=== PATIENT | female | born 1940 | race Caucasian/White ===

== ENCOUNTER 2016-04-09 10:54 | Emergency (ER) | payer MEDICARE, OTHER ==
[~2016-04-09] VITALS: Ht 162.6 cm; Wt 95.5 kg
[~2016-04-09 10:54] MED LIST: ALBU8.5H2 INHALATION; ATOR20TA PO; CELE100C PO; CHOL100045 PO; CYAN1TAB42 PO; DULO60CA42 PO; FLUT12AE8 IH; HYDR25TA4 PO; LOSA50TA37 PO; METF500T4 PO; METO25TA6 PO; PANT40TA2 PO; RANI300C PO; TRAM50TA2 PO
[2016-04-09 11:04] VITALS: BP 150/77; PULSE 116; RESP 18; O2SAT 98
--- NOTE | 2016-04-09 11:30 | ED.REPORT ---
HPI-General Illness Date of Service Apr 09, 2016 ED Provider: Sera Blakely History of Present Illness: 75-year-old female with a history of MS here for multiple complaints. She has been symptomatic for 1 week worsening 2 days ago. 2 days ago she had a new experimental MS drug, she does not know if this is playing a role in her symptoms. Symptoms include shortness of breath with talking or with walking, she has a decreased exercise intolerance even with just a few steps. She is having bladder malfunctions. This is not necessarily different for her but it is worse than usual. Differences in amount of stream and force of stream. She wonders if she has UTI. She has been fatigued all week increasing in the last 2 days. She feels some substernal chest pain 1 week. She has some baseline sinus issues that have not worsened. She has a minor cough. He feels like her heart rate has been increased from its baseline. She has had a headache as well. She is a history of acid reflux and this is also worse, feeling like her epigastric area is being squeezed. SHe is also having back pain, mid back. Pt has a hx of asthma, T2DM, acid reflux, HTN, Nursing Notes Stated Complaint: TROUBLE BREATHING/HEADACHE/WEAK Chief Complaint: General Complaint Nursing Notes Reviewed: Yes Allergies: Coded Allergies: Sulfa (Sulfonamide Antibiotics) (Verified Allergy, Unknown, 05/28/15) dimethyl fumarate (Verified Allergy, Unknown, 05/28/15) interferon beta-1a (Verified Allergy, Unknown, 05/28/15) glatiramer (copolymer 1) (Verified Adverse Reaction, Severe, Anaphylaxis, 05/28/15) Scheduled Albuterol HFA (Proair HFA) 8.5 Gm Hfa.aer.ad 2 PUFFS INHALATION Q4H Atorvastatin (Lipitor) 20 Mg Tablet 20 MG PO DAILY Celecoxib (Celebrex) 100 Mg Capsule 100 MG PO DAILY Cholecalciferol (Vitamin D3) (Vitamin D) 1,000 Unit Capsule 1,000 UNIT PO DAILY Cyanocobalamin/Folic Acid (Vitamin P59-Enrvo Acid Tablet) 1 Each Tablet 1 EACH PO DAILY Duloxetine (Cymbalta) 60 Mg Capsule.dr 60 MG PO DAILY Fluticasone Propionate (Flovent HFA 110 mcg) 12 Gm Aer.w.adap 1 PUFF IH BID Hydrochlorothiazide (Hydrochlorothiazide) 25 Mg Tablet 25 MG PO DAILY Losartan Potassium (Losartan Potassium) 50 Mg Tablet 50 MG PO DAILY Metformin (Metformin) 500 Mg Tablet 500 MG PO DAILY Metoprolol Tartrate (Metoprolol Tartrate) 25 Mg Tablet 25 MG PO BID Pantoprazole DR (Protonix) 40 Mg Tablet.dr 40 MG PO DAILY Ranitidine (Ranitidine) 300 Mg Capsule 300 MG PO DAILY Scheduled PRN Tramadol (Tramadol) 50 Mg Tablet 50 MG PO HS PRN PRN For Pain General Time Seen by MD: 11:17 Chief Complaint Headache, Heartburn, Multip medical complaints, Urinary frequency, Weakness Hx Obtained From: Patient Arrived By: Walk-in Sudden in Onset?: No Onset Occurred: 1 week ago Symptom Duration: Waxes and wanes Similar Sx Previous: Yes Past Medical History Past Medical History Notes: ED visit for multiple complaints 04/25/15 multiple sclerosis Past Medical History Multiple Sclerosis Asthma GERD Hiatal hernia Kidney stones Hx of UTI Basal cell carcinoma Fibromyalgia Anxiety Depression Past Surgical History Hysterectomy x2 Shoulder surgery x2 Family History noncontributory Smoking History Never Smoker Social History Alcohol Use: "Social" Drug Use: Denies drug use Other Social History: Good social support, , Local resident Ambulatory Status Independent Review of Systems Full Review of Systems Constitutional: Denies: Fever Ears / Nose / Throat: Reports: Nasal congestion Respiratory: Reports: Dyspnea on exertion, Shortness of breath Cardiovascular: Reports: Chest pain, Denies: Edema, Syncope Female: Reports: Urinary frequency, Urinary urgency Musculoskeletal: Reports: Back pain Neurologic: Reports: Bladder dysfunction, Dizziness, Headache, Denies: Lightheaded, Problem walking Complete sys rev & neg: except as marked. Physical Exam Vital Signs Vital Signs Date Time Temp Pulse Resp B/P Pulse Ox O2 Delivery O2 Flow Rate FiO2 04/09/16 14:28 89 16 144/74 95 Room Air 04/09/16 12:35 91 16 93 Room Air 04/09/16 11:04 37.3 116 18 150/77 98 Room Air Initial VS: Reviewed General/Constitutional: Well-developed, Well-nourished Head / Eyes: Atraumatic, Normocephalic, PERRL ENT: Mucous membranes moist, Conjunctiva normal Neck: Supple, Non-tender, Full range of motion Respiratory: No respiratory distress Cardiovascular: Heart sounds normal, Intact distal pulses Abdomen / GI: Soft, No guarding, No rebound, No distention Back: No CVA tenderness Lymphatic: No lymphadenopathy Extremities: Vascular intact Skin: Warm, Dry, No cyanosis Neurologic: Alert, Oriented, Nonfocal Psychiatric: Mood/affect normal, Behavior normal, Normal thought content Wheezing / Retractions: Positive: Wheezing mild wheeze R base, mild Abdomen: BS normoactive, No distention, No hernia, No palpable mass, No pulsatile mass Tenderness/Guarding/Rebound: Positive: Tender LUQ... (Moderate), Tender RUQ... (Moderate), Tender epigastric Back: Atraumatic, Inspection NL Tender upper back, intrascapular area, no midline tenderness down length of spine mild, 1+ LE pitting edema, bilat Interpretation & Diagnostics Lab Results Interpretation Result Diagram: 04/09/16 1215 04/09/16 1215 Test 04/09/16 12:15 04/09/16 13:00 White Blood Count 7.5th/mm3 (3.8-10.1) Red Blood Count 4.68mil/mm3 (3.90-5.20) Hemoglobin 13.9g/dL (12.0-15.6) Hematocrit 41.9% (35.0-46.0) Mean Corpuscular Volume 89.5fL (81-100) Mean Corpuscular Hemoglobin 29.7pg (27.0-35.0) Mean Corpuscular Hemoglobin Concent 33.2% (32.0-37.0) Red Cell Distribution Width 14.9% (12.3-15.4) Platelet Count 291bil/L (150-400) Neutrophils (%) (Auto) 66.0% (40-74) Lymphocytes (%) (Auto) 19.9% (14-46) Monocytes (%) (Auto) 9.5% (4-12) Eosinophils (%) (Auto) 2.8% (0-5) Basophils (%) (Auto) 1.1% (0-3) Sodium Level 135mEq/L (134-144) Potassium Level 4.2mEq/L (3.5-5.2) Chloride Level 95mEq/L (97-108) Carbon Dioxide Level 21mmol/L (18-29) Blood Urea Nitrogen 25mg/dL (8-27) Creatinine 1.13mg/dL (0.57-1.00) Estimat Glomerular Filtration Rate 68mL/min (>59) Glucose Level 171mg/dL (60-99) Calcium Level 9.6mg/dL (8.5-10.1) Magnesium Level 1.5mg/dL (1.6-2.6) Total Bilirubin 0.6mg/dL (0.0-1.2) Aspartate Amino Transf (AST/SGOT) 35U/L (0-50) Alanine Aminotransferase (ALT/SGPT) 34U/L (0-32) Alkaline Phosphatase 63U/L (25-165) Troponin T 0.010ug/L (0.0-0.011) Total Protein 7.7g/dL (6.4-8.4) Albumin 4.5g/dL (3.4-5.0) Amylase Level 44U/L (28-100) Lipase 36U/L (13-60) D-Dimer < 0.5mg/L (<0.50) ECG Interpretation Interpreted by: ED physician Abnormal Rate: 100 Rhythm / Conduction: Tachycardia Re-Eval/Medical Decision Med Decision/Clinical Course Discussed discharge with patient. She does not want to do a round of steroids right now for her abdominal symptoms. She will follow up with her PCP in the next 1-2 days or return to the ER if worsening in the next 24-48 hours. Unknown if her symptoms are related to her medication but she should not take her new med until follow-up with her MS specialist. She has follow-up in April with GI already scheduled she will try to see if she get in sooner. Discharge & Departure Shift Change Sign-Out Laboratory Evaluation: Lab evaluation discussed Imaging Studies: Imaging discussed Procedures: Results discussed Response to Therapy: Improved Primary Impression: History of multiple sclerosis Additional Impressions: Shortness of breath Acid reflux disease Esophagitis presence: with esophagitis Qualified Code: K21.0 - Gastro- esophageal reflux disease with esophagitis Disposition: Home Discharge Condition All VS Reviewed: Yes Condition: Stable Patient Instructions: Gastroesophageal Reflux Disease (ED) Additional Instructions: Monitor abdominal pain and return to the emergency room if pain worsens, you get fever, vomiting, worsening chest pain, shortness of breath or anything major changes. Otherwise follow-up with your PCP in one to 2 days. Try to get it appointment with GI sooner than mid April. He were not found to have any new infections or conditions today things change need to get reevaluated. Do not take your new medication until instructed to by your MS specialist Referrals: Amado Tenorio DO (PCP) EDSupervising Provider for APC: Nino Mcdermott MD copies to: Amado Tenorio Linnea K ARNP Apr 09, 2016 11:30
[2016-04-09] MEDS ORDERED: Albuterol-Ipratropium 3 mL Inhalation Solution NEB ONE (11:40)
[2016-04-09 12:28] LABS: BASOPHILS % (AUTO) 1.1 % (0-3); EOSINOPHILS % (AUTO) 2.8 % (0-5); MONOCYTES % (AUTO) 9.5 % (4-12); Mean Corpuscular Hemoglobin 29.7 pg (27.0-35.0); Mean Corpuscular Volume 89.5 fL (81-100); Platelet Count 291 bil/L (150-400)
[2016-04-09 12:35] VITALS: PULSE 91; RESP 16; O2SAT 93
[2016-04-09 12:53] LABS: TROPONIN T 0.01 ug/L (0.0-0.011)
[2016-04-09 13:04] LABS: Magnesium 1.5 mg/dL (1.6-2.6)
[2016-04-09] MEDS ORDERED: MetoCLOpramide 5 mg/mL 2 mL Inj IVPUSH ONE (13:25)
[2016-04-09 14:28] VITALS: BP 144/74; PULSE 89; RESP 16; O2SAT 95
--- NOTE | 2016-04-09 15:15 | DRSVH ---
PROCEDURE: X-RAY CHEST ONE VIEW, PORTABLE ([id number]) INDICATIONS: SHORTNESS OF BREATH TECHNIQUE: One view of the chest was acquired. COMPARISON: [facility], CR, XR CHEST 2VW, 01/25/2016, 10:53. [facility], C R, XR CHEST 1VW (PORTABLE), 04/25/2015, 11:21. FINDINGS: Surgical changes and devices: None. Lungs and pleura: No pleural effusions or pneumothorax. Lungs are clear. Chronic right hemidiaphra gm elevation appears unchanged. Mediastinum: Mediastinal contours appear normal. Heart size is normal. Bones and chest wall: No suspicious bony lesions. Overlying soft tissues appear unremarkable. IMPRESSION: No acute cardiopulmonary disease. Chronic right hemidiaphragm elevation. Dictated by: Gordy Elias M.D. on 04/09/2016 at 13:44 Approved by: Gordy Elias M.D. on 04/09/2016 at 13:45
[2016-07-03] MEDS ORDERED: ALBI30PE SQ (08:41)
[2016-07-03] MEDS ORDERED: SPIR25TA3 PO (08:41)
== END 2016-04-09 14:29 | disposition home or self-care (01) ==
LOC: SED 10:54
DX: G35 Multiple sclerosis (principal); R06.02 Shortness of breath; K21.0 Gastro-esophageal reflux disease with esophagitis; R53.1 Weakness; R07.2 Precordial pain; R42 Dizziness and giddiness; J45.909 Unspecified asthma, uncomplicated; K21.9 Gastro-esophageal reflux disease without esophagitis; Z88.2 Allergy status to sulfonamides; Z88.8 Allergy status to other drugs, medicaments and biological substances; Z79.84 Long term (current) use of oral hypoglycemic drugs; Z87.440 Personal history of urinary (tract) infections
CPT/HCPCS: 36415; 71010; 80053; 82150; 83690; 83735; 84484; 85025; 85379; 94664; 94799; 96374; 99285; J2765; J7620

== ENCOUNTER 2016-07-04 11:20 | Day surgery (SDC) | payer MEDICARE, OTHER ==
[~2016-07-04] VITALS: Ht 162.6 cm; Wt 97.5 kg
--- NOTE | 2016-07-04 07:52 | PCM.HPANE ---
Patient Data Surgeon Admitting Provider: Attending Provider:Anup De Guzman MD Primary Care Physician:Amado Tenorio DO Other Provider:Rogelio Marie Anesthesia Reason for Visit Dysphagia Ht/WT & BMI Body Mass Index Allergies Coded Allergies: Sulfa (Sulfonamide Antibiotics) (Verified Allergy, Unknown, 07/03/16) dimethyl fumarate (Verified Allergy, Unknown, 07/03/16) interferon beta-1a (Verified Allergy, Unknown, 07/03/16) glatiramer (copolymer 1) (Verified Adverse Reaction, Severe, Anaphylaxis, 07/03/16) Past Anesthesia History Anesthesia History: Denies:: Abnormal Airway, Anesthesia Reactions, Difficult Intubation, Fam Anesthesia Reaction, Fam Malignant Hypertherm, Malignant Hyperthermia Diabetes History Hx Diabetes?: Yes (GLUCOSE CHECKED AT HOME BY PT THIS AM) MRSA MRSA: No Medications Reported Medications [place]-3 Fatty Acids (Fish Oil)500 Mg Capsule.dr1,200 Mg PO DAILYWD 07/04/16 Hydrochlorothiazide 25 Mg Xwcdlz76 Mg PO DAILY 30 Days Ref 0 07/04/16 Albiglutide (Tanzeum)30 Mg/0.5 Ml Pen.nsrlax46 Mg SQ 07/03/16 Spironolactone 25 Mg Auemrp49 Mg PO DAILY #30 TABLET Ref 0 07/03/16 Metoprolol Tartrate 25 Mg Bmwfad18 Mg PO BID 30 Days Ref 0 02/09/16 Hydrochlorothiazide 25 Mg Flwkuo93 Mg PO DAILY 30 Days Ref 0 02/09/16 Albuterol HFA (Proair HFA)8.5 Gm Hfa.aer.ad2 Puffs INHALATION Q4H #1 INHALER 10/04/15 Cholecalciferol (Vitamin D3) (Vitamin D)1,000 Unit Capsule1,000 Unit PO DAILY # 1 BOTTLE Ref 0 12/25/14 Fluticasone Propionate (Flovent HFA 110 mcg)12 Gm Aer.w.adap1 Puff IH BID #12 GM Ref 0 12/25/14 Tramadol 50 Mg Kvmozc18 Mg PO HS PRN For Pain Ref 0 01/16/14 Atorvastatin (Lipitor)20 Mg Aarjgh22 Mg PO DAILY 30 Days Ref 0 01/16/14 Metformin 500 Mg Blfqin237 Mg PO BID 30 Days Ref 0 01/16/14 Duloxetine (Cymbalta)60 Mg Capsule.dr60 Mg PO DAILY Ref 0 01/16/14 Cyanocobalamin/Folic Acid (Vitamin G95-Jsyzg Acid Tablet)1 Each Tablet1 Each PO DAILY 01/16/[address] (Protonix)40 Mg Tablet.dr40 Mg PO BID 30 Days Ref 0 01/16/14 Losartan Potassium 50 Mg Jiyssp85 Mg PO DAILY 01/16/14 Celecoxib (Celebrex)100 Mg Nbssqng608 Mg PO DAILY #30 CAPSULE Ref 0 01/16/14 Discontinued Reported Medications Ranitidine 300 Mg Bpeobvk294 Mg PO DAILY 30 Days Ref 0 01/16/14 History History of ENT Problems?: Yes HEENT History: Positive for:: Hearing Problem (NOT WEARING TODAY) Sinus Problem (chronic sinus) TMJ Denies:: Abnormal Airway Cataracts Difficult Intubation Dysphagia Denture Type: None Teeth Condition: Within Normal Limits Hx of Heart Problems?: Yes Cardiovascular History: Positive for:: Edema (trace edema ankles) Hypertension Denies:: AICD Atrial Fibrillation Chest Pain Pacemaker Valvular Heart Disease Hx of Respiratory Problem?: Yes Respiratory History: Positive for:: Asthma (EXERCISE INDUCED ) Dyspnea (exertional and at rest from MS) Denies:: COPD Chest Surgery Cough Emphysema Hemoptysis Pneumonia Tuberculosis Hx Neurologic Problems?: Yes Neurological History: Positive for:: Dizziness Headaches Multiple Sclerosis (generalized weakness and fatigue) Denies:: Alzheimer's Disease CVA Dementia Parkinson's Disease Seizures Hx of GI Problems?: Yes Hx of Problems?: Yes Genitourinary History: Positive for:: Kidney Stones (passed 12 years ago) Urinary Tract Infection Female Hx: Denies:: Currently Endometriosis Pelvic Inflammatory Problems with Breasts? Skin History: Positive for:: History Skin Disorders? (BASAL CELL CA ON RIGHT LEG) Denies:: Pressure Ulcers Hx Musculoskeletal Problems?: Yes Musculoskeletal History: Positive for:: Back Injury Musculoskeletal Trauma (S/P RT SHOULDER RPR LT SHOULDER=CURRENT PROBLEM) Denies:: Joint Replacement Hx of Psycho/Social Problems?: No Psycho Social History: Positive for:: Anxiety Denies:: Bipolar Disorder Hx Depression Suicide Attempt Hx Surgeries?: Yes ( X2, BILATERAL ROTATOR CUFF, HYSTERECTOMY) Hx Any Other Health Problems?: Yes Other History: Positive for:: Cancer (skin cancer) Denies:: Endocrine Disease Hospitalization Thyroid Disease History Blood Transfusions: Denies:: Blood Transfusions Hx Diabetes: Yes (GLUCOSE CHECKED AT HOME BY PT THIS AM) Hx Alcohol Use: NoHx Substance Use: No Smoking Status: Never Smoker Have You Smoked inLast 12 mo: No Stop/Bang Risk Assessment Category Category 1A: Patient has history of documented sleep apnea, and HAS NOT received any narcotic, sedative or anesthesia administration during this stay. Category 1B: Patient has history of documented sleep apnea, and HAS received any narcotic , sedative or anesthesia administration during this stay Category 2: Patient has SUSPECTED Obstructive Sleep Apnea, and HAS received any narcotic , sedative or anesthesia administration during this stay. Category 3: Patient has SUSPECTED Obstructive Sleep Apnea and HAS NOT received narcotic, sedative or anesthesia administration during this stay. Category 4: Outpatient in Procedural Areas with known sleep apnea or who screen positive for High Risk via the STOP/BANG questionnaire. Exam Exam General Appearance: Alert, Oriented X3, Cooperative, No Acute Distress HEENT/AIRWAY: MP 2, Neck Movement (FROM), Mouth Opening (WNL) Lungs: Clear to Auscultation Heart: Exam Unremarkable Plan Impression Patient chart reviewed, patient interviewed and anesthestic plan with risks, benefits, and alternatives discussed, and informed consent obtained. ASA Physical Status: ASA2 Mod Systemic Disease Anesthetic Plan: GA Bene/Risks/Altern/Consents: Yes HP Complete Prior to Induction: Yes Geoffrey Moe MD July 04, 2016 07:52
[~2016-07-04 11:20] MED LIST changes: +ALBI30PE SQ; +Lactated Ringer's 1,000 ML IV ONE; +SPIR25TA3 PO
[2016-07-04] MEDS ORDERED: Propofol 10,000 mCg/mL 20 mL Inj ONE (11:21)
[2016-07-04] MEDS ORDERED: fentaNYL-PF 50 mCg/mL 2 mL Inj ONE (11:21)
[2016-07-04 11:36] VITALS: BP 144/67; PULSE 66; RESP 14; O2SAT 98
[2016-07-04] MEDS ORDERED: OMEG500C PO (11:44)
[2016-07-04] MEDS ORDERED: HYDR25TA4 PO (11:44)
[2016-07-04] MEDS ORDERED: Lactated Ringer's 1,000 ML IV SCH (12:09)
[2016-07-04] MEDS ORDERED: MetoCLOpramide 5 mg/mL 2 mL Inj IVPUSH PRN (12:10)
[2016-07-04] MEDS ORDERED: Ondansetron 2 mg/mL 2 mL Inj IVPUSH PRN (12:10)
[2016-07-04 12:37] VITALS: BP 110/62; PULSE 65; RESP 14; O2SAT 92
--- NOTE | 2016-07-04 12:41 | PCM.ANEP1 ---
Post Anesthesia Phase 1 PACU Phase 1 Assessment Vital Signs Vital Signs Date Time Temp Pulse Resp B/P Pulse Ox O2 Delivery O2 Flow Rate FiO2 07/04/16 12:37 65 14 110/62 92 Room Air 07/04/16 11:36 66 14 144/67 98 Room Air Anesthetic Administered: GA Level of Alertness: Awake, talking DAVIDSON's with Equal Strength: Yes Pain: No Nausea or Vomiting: No Oxygen Delivery: Room Air Lungs: Normal Air Movement Complications: No Follow up Care: No Geoffrey Moe MD July 04, 2016 12:41
[2016-07-04 12:45] VITALS: BP 122/65; PULSE 62; RESP 14; O2SAT 93
[2016-07-04 12:55] VITALS: BP 120/67; PULSE 64; RESP 14; O2SAT 95
--- NOTE | 2016-07-04 13:23 | ENDO ---
[address] [address] ENDOSCOPY PROCEDURE PATIENT: ABHAY HENRY : 1940 MR#: [id number] ADMIT: 07/04/2016 JOB ID: [id number] DATE: 07/04/2016 PRIMARY PROVIDER: Amado Tenorio D.O. PROCEDURE: Esophagogastroduodenoscopy with biopsy. INDICATIONS: A 75-year-old female with some symptoms of intermittent dysphagia. She is actually much improved since transitioning from H2 receptor antagonist over to PPI. EQUIPMENT: GIF H 180 J. SEDATION: Monitored anesthesia as provided by Dr. Douglas Moe. COMPLICATIONS: None identified. PROCEDURAL INFORMATION: After the risks and benefits were explained, written and verbal informed consent was obtained. The patient was brought into the endoscopy suite and placed into the left lateral decubitus position. Sedation was achieved using the above-stated medications with the addition of oxygen via nasal cannula. The scope was introduced into the mouth and advanced to the second portion of the duodenum. The scope was slowly withdrawn to carefully examine the mucosa for any defects or lesions. Retroflexed views were accomplished in the stomach. The stomach was decompressed. The scope removed from the patient who tolerated the procedure well. FINDINGS: 1. Duodenum: This appeared visually normal from the bulb through to the second portion. 2. Stomach: No ulcers, no mass lesions. A diminutive gastric polyp from the midbody was removed with cold forceps. No other significant pathology was identified including retroflexed views (subtle sliding hiatal hernia). 3. Esophagus: The squamocolumnar junction correlated with the top of the gastric folds. The GEJ was at 37 cm from the incisors. No acute erosive changes. No strictures. No mass lesions. Again subtle sliding hiatal hernia noted. No strictures. No mass lesions. Nothing anatomic or structural to account for the swallowing difficulties. ENDOSCOPIC DIAGNOSES: 1. Small sliding hiatal hernia. 2. Diminutive gastric polyp. 3. Mild nonspecific gastropathy. RECOMMENDATIONS: 1. Await histopathology. 2. Surveillance esophagogastroduodenoscopy is not anticipated. 3. Continue anti-reflux regimen. 4. If swallowing difficulties persist in spite of PPI use, then esophageal motility and pH data will be considered.
--- NOTE | 2016-07-05 16:06 | PATH ---
SURGICAL PATHOLOGY Attending Physician:Chiquis Bird CASE STATUS: Signed Out PATIENT NAME: ABHAY HENRY PID: [id number] : 1940 DATE COLLECTED:07/04/2016 19:33 SPECIMEN: Stomach, Polyp, Biopsy CLINICAL HISTORY: 1). GASTRIC POLYP BIOPSY FINAL DIAGNOSIS: Gastric Polyp, Biopsy: Morphologic features of fundic gland polyp; negative for dysplasia and malignancy. ICD10: K31.7 GROSS DESCRIPTION: The specimen is received in one formalin filled container labeled with the patient's name, sublabeled "gastric polyp" and consists of a 0.4 x 0.3 x 0.3 CM portion of tissue which is entirely submitted in one cassette. 07/04/2016 [facility] ICD-9 CODES: CPT CODES: 1: 09316 PROCEDURE/ADDENDA: Addendum SPI Addendum Diagnosis Gastric Polyp: Negative for H. pylori organisms by immunohistochemistry studies Addendum Comment {Not Entered} Electronically Signed Out Mabel Stacy MD Electronically Signed Out Mabel Stacy MD [facility] Pathology [facility], [place] [address] Technical component performed at [facility], [address] [place] [address] [address], [place], [address]
== END 2016-07-04 23:59 | disposition home or self-care (01) ==
LOC: END 11:20
PROVIDERS: ATTEND Internal Medicine Gastroenterology
DX: K31.7 Polyp of stomach and duodenum (principal); K44.9 Diaphragmatic hernia without obstruction or gangrene; K31.9 Disease of stomach and duodenum, unspecified; K21.9 Gastro-esophageal reflux disease without esophagitis; G35 Multiple sclerosis; K22.70 Barrett's esophagus without dysplasia; I10 Essential (primary) hypertension; J45.909 Unspecified asthma, uncomplicated; E11.9 Type 2 diabetes mellitus without complications; F41.9 Anxiety disorder, unspecified; E66.9 Obesity, unspecified; Z79.51 Long term (current) use of inhaled steroids; Z79.84 Long term (current) use of oral hypoglycemic drugs
CPT/HCPCS: 43239; J2250; J3010; J7120